=== PATIENT | male | born 1960 | race Caucasian/White ===

== ENCOUNTER 2018-04-09 06:25 | Emergency (ER) | payer OTHER, SELFPAY ==
[2018-04-09 07:02] LABS: Absolute Lymphocytes (CBC) 1.8 K/uL (0.7-4.9); Absolute Monocytes 0.6 K/uL (0.1-1.3); Absolute Neutrophil 3.6 K/uL (1.8-8.0); Basophils % 0.4 % (0-1.3); Eosinophils % 3.8 % (0-4.4); Hematocrit 53.3 % (39.6-49.0); Lymphocytes % 29.1 % (15.3-44.8); MCH 30.5 pg (27.0-35.0); MCV 90.8 fL (80-100); MPV 9.1 fL (7.6-11.3); Monocytes % 9.5 % (3.3-12.3); RBC Red Blood Cell Count 5.87 M/uL (4.33-5.43)
[2018-04-09 07:05] LABS: Protime INR 0.94
[2018-04-09 07:09] LABS: Potassium 4.1 mEq/L (3.6-5.0)
[2018-04-09 07:15] LABS: Albumin 4.1 g/dL (3.2-5.5); Bilirubin Direct 0.1 mg/dL (0-0.2); Bilirubin Total 0.8 mg/dL (0.3-1.2); Magnesium 2.1 mg/dL (1.8-2.5); Protein, Total 6.7 g/dL (6.0-8.3)
[2018-04-09 07:18] LABS: CKMB Creatine Kinase MB 1.1 ng/ml (0.3-4.0)
--- NOTE | 2018-04-09 08:38 | RAD REPORT ---
EXAM DESCRIPTION: CT - [id number] - 04/09/2018 7:04 am CLINICAL HISTORY: Trauma, head and neck injury. COMPARISON: None. TECHNIQUE: Axial 5 mm thick images of the head were obtained. Axial 2 mm thick images of the cervical spine were obtained with sagittal and coronal reconstruction images generated and reviewed. All CT scans are performed using dose optimization technique as appropriate and may include automated exposure control or mA/KV adjustment according to patient size. FINDINGS: CT HEAD WITHOUT CONTRAST: No acute hemorrhage, hydrocephalus or extra-axial collection is identified.Mild generalized brain atr ophy.No areas of brain edema or midline shift. The paranasal sinuses and mastoids are clear.The calvarium is intact. CT CERVICAL SPINE WITHOUT CONTRAST: No fracture or subluxation.Multilevel degenerative change throughout the cervical spine. 2 mm anterol isthesis of C4 on 5.No prevertebral soft tissues swelling is identified. IMPRESSION: No acute intracranial or cervical spine findings.
--- NOTE | 2018-04-09 09:47 | RAD REPORT ---
EXAM DESCRIPTION: VAS - Extremity Venous Uni Ltd - 04/09/2018 9:13 am CLINICAL HISTORY: Left arm swelling. COMPARISON: None. FINDINGS: Left upper extremity venous system was interrogated with Doppler technique. Normal flow, c ompressibility and augmentation was noted. There is no DVT present. IMPRESSION: No evidence of left upper extremity deep venous thrombosis.
--- NOTE | 2018-04-09 09:53 | ER ---
Nurse's Notes [facility] Name: Julio Olivo Age: 57 yrs Sex: Male : 1960 Arrival Date: 04/09/2018 Time: 06:26 Bed 6 Private MD: Diagnosis: Paresthesia of skin-Left Medial Forearm Presentation: 04/09 06:30 Presenting complaint: Patient states: that at 1999 last night he started to have fc numbness to the underside of his left forearm. Denies any pain to that pain. States that he has a slight headache but no chest pain or shortness of breath. Transition of care: patient was not received from another setting of care. Onset of symptoms was April 08, 2018 at 20:00. Risk Assessment: Do you want to hurt yourself or someone else? Patient reports no desire to harm self or others. Initial Sepsis Screen: Does the patient meet any 2 criteria? No. Patient's initial sepsis screen is negative. Does the patient have a suspected source of infection? No. Patient's initial sepsis screen is negative. Care prior to arrival: None. 06:30 Method Of Arrival: Ambulatory 06:30 Acuity: SOLOMON 3 Triage Assessment: 06:30 General: Appears comfortable, Behavior is calm, cooperative, appropriate for age. Pain: fc Complains of pain in head Pain currently is 3 out of 10 on a pain scale. Quality of pain is described as aching, Is continuous. EENT: No deficits noted. Neuro: Level of Consciousness is awake, alert, obeys commands, Oriented to person, place, time, situation, Sports Clerk are equal bilaterally Moves all extremities. Full function Gait is steady, Speech is normal, Facial symmetry appears normal, Reports numbness in palmar aspect of left forearm since 1999 last night. Cardiovascular: No deficits noted. Denies chest pain. Respiratory: No deficits noted. GI: No deficits noted. : No deficits noted. Derm: Skin is pink, warm \T\ dry. Musculoskeletal: Circulation, motion, and sensation intact. Capillary refill < 3 seconds, Range of motion: intact in all extremities, Reports numbness in palmar aspect of left forearm. Historical: - Allergies: 06:42 No Known Allergies; fc - Home Meds: 06:42 testosterone cypionate 200 mg/mL intramuscular oil 2 mL every 2 wks [Active]; fc Wellbutrin XL 150 mg Oral Tb24 .5 tab nightly [Active]; clonazepam 2 mg Oral tab 2 tabs nightly [Active]; - PMHx: 06:42 Diabetes - NIDDM; Hypertension; Depression; Anxiety; insomnia; fc - PSHx: 06:42 Hernia repair; left wrist surg; fc - Immunization history:: Last tetanus immunization: unknown. - Social history:: Smoking status: Patient/guardian denies using tobacco. - Ebola Screening: : Patient negative for fever greater than or equal to 101.5 degrees Fahrenheit, and additional compatible Ebola Virus Disease symptoms Patient denies exposure to infectious person Patient denies travel to an Ebola-affected area in the 21 days before illness onset. Screenin:42 Abuse screen: Denies threats or abuse. Nutritional screening: No deficits noted. fc Tuberculosis screening: No symptoms or risk factors identified. Fall Risk None identified. Assessment: 06:47 Reassessment: Patient appears in no apparent distress at this time. No changes from ak1 previously documented assessment. General: Appears in no apparent distress. Behavior is calm, cooperative. Pain: Denies pain. Neuro: Level of Consciousness is awake, alert, obeys commands, Oriented to person, place, time, situation, Sports Clerk are equal bilaterally Moves all extremities. Gait is steady, Speech is normal, Facial symmetry appears normal. Cardiovascular: No deficits noted. Respiratory: No deficits noted. GI: No signs and/or symptoms were reported involving the gastrointestinal system. : No signs and/or symptoms were reported regarding the genitourinary system. EENT: No signs and/or symptoms were reported regarding the EENT system. Derm: Reports numbness to underside of left forearm since 199904/08/18. Musculoskeletal: Reports numbness in palmar aspect of left forearm. 07:02 Reassessment: report given to Salud Ma RN and Jackson Means RN. ak1 07:15 Reassessment: Patient appears in no apparent distress at this time. Patient and/or sg family updated on plan of care and expected duration. Pain level reassessed. Patient is alert, oriented x 3, equal unlabored respirations, skin warm/dry/pink. awaiting results, awaiting new orders, awaiting re evaluation by PETRA GOMEZ. 09:10 Reassessment: Patient appears in no apparent distress at this time. Patient is alert, sg oriented x 3, equal unlabored respirations, skin warm/dry/pink. xray at bedside at this time. 10:06 Reassessment: Patient appears in no apparent distress at this time. No changes from tw2 previously documented assessment. Patient and/or family updated on plan of care and expected duration. Pain level reassessed. Patient is alert, oriented x 3, equal unlabored respirations, skin warm/dry/pink. Vital Signs: 06:30 BP 135 / 94; Pulse 63; Resp 18; Temp 97.2(O); Pulse Ox 98% on R/A; Weight 89.81 kg (R); fc Height 6 ft. 0 in. (182.88 cm) (R); Pain 3/10; 06:30 Body Mass Index 26.85 (89.81 kg, 182.88 cm) ED Course: 06:26 Patient arrived in ED. ds1 06:29 Gonzalez Godoy PA is PHCP. cp 06:29 Siva Shabazz MD is Attending Physician. cp 06:30 Arm band placed on Patient placed in an exam room, on a stretcher. fc 06:38 Triage completed. fc 06:42 Patient has correct armband on for positive identification. Bed in low position. Call light in reach. 06:42 No provider procedures requiring assistance completed. fc 06:47 Erin Lam, RN is Primary Nurse. ak1 06:47 Initial lab(s) drawn, by ks, sent to lab. EKG done. Inserted saline lock: 20 gauge in ak1 right forearm, using aseptic technique. Blood collected. 06:[address] via wheelchair. kw1 07:02 CT completed. Patient tolerated procedure well. Patient moved back from [place]. kw1 07:05 CT Head C Spine In Process Unspecified. EDMS 07:33 Amaury Key MD is Attending Physician. cp 09:11 US Extremity Venous Unilateral Ltd In Process Unspecified. EDMS 09:25 Primary Nurse role handed off by Erin Lam, RN sg 09:25 Jackson Shore, ANDREA is Primary Nurse. sg 10:06 IV discontinued, intact, bleeding controlled, No redness/swelling at site. Pressure tw2 dressing applied. Administered Medications: No medications were administered Outcome: 09:53 Discharge ordered by . cp 10:06 Discharged to home ambulatory, with significant other. tw2 10:06 Condition: stable 10:06 Discharge instructions given to patient, significant other, Instructed on discharge instructions, follow up and referral plans. medication usage, Demonstrated understanding of instructions, follow-up care, medications, Prescriptions given X 1. 10:07 Patient left the ED. tw2 Signatures: Dispatcher [employer] EDMS Jackson Shore, RN RN sg Morenita Pittman RN RN Andreina Lancaster ds1 Erin Lam RN RN ak1 Gonzalez Godoy PA PA cp Wise, Tara, RN RN tw2 Génesis Mars kw1
--- NOTE | 2018-04-09 09:53 | EDPHYS ---
Physician Documentation [facility] Name: Julio Olivo Age: 57 yrs Sex: Male : 1960 Arrival Date: 04/09/2018 Time: 06:26 Bed 6 Private MD: ED Physician Amaury Key HPI: 04/09 06:34 This 57 yrs old Male presents to ER via Unassigned with complaints of cp Numbness - In arm. 06:35 The patient's problem is reported as paresthesias, in left upper extremity. cp 06:35 Onset: The symptoms/episode began/occurred last night, at 20:00. Duration: The episode cp is continuous. Associated signs and symptoms: Pertinent positives: headache. 06:35 Severity of symptoms: in the emergency department the symptoms are unchanged despite cp home interventions. Patient's baseline: Neuro: alert and fully oriented, Motor: no deficits, Ambulation: walks without assistance, Speech: normal. 06:35 The patient has not experienced similar symptoms in the past. cp 06:35 Patient reports noticing swelling of medial aspect left forearm this morning that has cp improved. Historical: - Allergies: 06:42 No Known Allergies; fc - Home Meds: 06:42 testosterone cypionate 200 mg/mL intramuscular oil 2 mL every 2 wks [Active]; fc Wellbutrin XL 150 mg Oral Tb24 .5 tab nightly [Active]; clonazepam 2 mg Oral tab 2 tabs nightly [Active]; - PMHx: 06:42 Diabetes - NIDDM; Hypertension; Depression; Anxiety; insomnia; fc - PSHx: 06:42 Hernia repair; left wrist surg; fc - Immunization history:: Last tetanus immunization: unknown. - Social history:: Smoking status: Patient/guardian denies using tobacco. - Ebola Screening: : Patient negative for fever greater than or equal to 101.5 degrees Fahrenheit, and additional compatible Ebola Virus Disease symptoms Patient denies exposure to infectious person Patient denies travel to an Ebola-affected area in the 21 days before illness onset. ROS: 06:38 Constitutional: Negative for body aches, chills, fever, poor PO intake. cp 06:38 Eyes: Negative for injury, pain, redness, and discharge. cp 06:38 ENT: Negative for drainage from ear(s), ear pain, sore throat, difficulty swallowing, difficulty handling secretions. 06:38 Neck: Positive for tenderness, mild pain, Negative for injury or acute deformity, stiffness, swelling. 06:38 Cardiovascular: Negative for chest pain, edema, palpitations. 06:38 Respiratory: Negative for cough, shortness of breath, wheezing. 06:38 Abdomen/GI: Negative for abdominal pain, nausea, vomiting, and diarrhea, black/tarry stool, rectal bleeding. 06:38 Back: Negative for injury or acute deformity, pain at rest, pain with movement, radiated pain. 06:38 : Negative for urinary symptoms, flank pain. 06:38 MS/extremity: Positive for paresthesias, of the medial aspect left forearm, Negative for injury or acute deformity, decreased range of motion, pain, tenderness. 06:38 Skin: Negative for cellulitis, rash. 06:38 Neuro: Negative for altered mental status, dizziness, weakness. 06:38 All other systems are negative. Exam: 06:47 Constitutional: The patient appears in no acute distress, alert, awake, comfortable, cp non-diaphoretic, non-toxic, well developed, well nourished. 06:47 Head/Face: Normocephalic, atraumatic. Eyes: Pupils equal round and reactive to light, cp extra-ocular motions intact. Lids and lashes normal. Conjunctiva and sclera are non-icteric and not injected. Cornea within normal limits. Periorbital areas with no swelling, redness, or edema. ENT: Nares patent. No nasal discharge, no septal abnormalities noted. Tympanic membranes are normal and external auditory canals are clear. Oropharynx with no redness, swelling, or masses, exudates, or evidence of obstruction, uvula midline. Mucous membranes moist. 06:47 Neck: External neck: swelling, is not appreciated, tenderness, that is mild, of the left mid cervical area, right mid cervical area, left trapezius, lower cervical area and right trapezius, C-spine: vertebral tenderness, that is mild, appreciated at lower cervical, crepitus, is not appreciated, ROM/movement: is normal, is supple, no range of motions limitations, no meningismus, no nuchal rigidity. 06:47 Chest/axilla: Inspection: normal, Palpation: is normal, no crepitus, no tenderness. 06:47 Cardiovascular: Rate: normal, Rhythm: regular, Pulses: Pulses are 2+ in right radial artery and left radial artery. Heart sounds: murmur, not appreciated, Edema: is not appreciated, JVD: is not appreciated. 06:47 Respiratory: the patient does not display signs of respiratory distress, Respirations: normal, no use of accessory muscles, no retractions, no splinting, no tachypnea, labored breathing, is not present, Breath sounds: are clear throughout, no decreased breath sounds, no stridor, no wheezing. 06:47 Abdomen/GI: Inspection: abdomen appears normal, Palpation: abdomen is soft and non-tender, in all quadrants. 06:47 Back: pain, is absent, ROM is normal, vertebral tenderness, is not appreciated. 06:47 Musculoskeletal/extremity: Exam is negative for acute changes, bony tenderness, calf tenderness, decreased range of motion, deformity, injury, the medial aspect left forearm from elbow to wrist decreased sensation, no pain noted 06:47 Skin: cellulitis, is not appreciated, no rash present. 06:47 Neuro: Orientation: to person, place \T\ time. Mentation: lucid, able to follow commands, Cerebellar function: is grossly normal, Motor: moves all fours, strength is normal, Gait: is steady, at a normal pace, without difficulty. 06:50 ECG was reviewed by the Attending Physician. cp 08:42 Radiologist reports: no acute findings cp Vital Signs: 06:30 BP 135 / 94; Pulse 63; Resp 18; Temp 97.2(O); Pulse Ox 98% on R/A; Weight 89.81 kg (R); fc Height 6 ft. 0 in. (182.88 cm) (R); Pain 3/10; 06:30 Body Mass Index 26.85 (89.81 kg, 182.88 cm) fc MDM: 06:29 Patient medically screened. cp 07:00 Differential diagnosis: CVA, TIA, metabolic disorder, drug effects, peripheral cp neuropathy, cardiac arrythmia. 09:51 Data reviewed: vital signs, nurses notes, lab test result(s), EKG, radiologic studies, cp CT scan, ultrasound. 09:51 Counseling: I had a detailed discussion with the patient and/or guardian regarding: the cp historical points, exam findings, and any diagnostic results supporting the discharge/admit diagnosis, lab results, radiology results, the need for outpatient follow up, a family practitioner, to return to the emergency department if symptoms worsen or persist or if there are any questions or concerns that arise at home. Response to treatment: There is no appreciated change of the patient's symptoms at this time, and as a result, I will discharge patient. ED course: VSS. Labs and radiology studies reviewed. Will discharge to home for continued monitoring with RX given for medrol dose kai. Patient instructed to monitor blood glucose levels and f/u with PCP. 06 06:33 Order name: Basic Metabolic Panel cp 06/ 06:33 Order name: BNP; Complete Time: 07:33 cp 06/05 06:33 Order name: CBC with Diff; Complete Time: 07:10 cp 06/ 07:10 Interpretation: Normal except: RBC 5.87; HCT 53.3. cp 06/05 06:33 Order name: Ckmb cp 06/ 06:33 Order name: CPK cp 06/ 06:33 Order name: LFT's; Complete Time: 07:33 cp 06/05 06:33 Order name: Magnesium; Complete Time: 07:33 cp 06/05 06:33 Order name: PT-INR; Complete Time: 07:10 cp 06/05 06:33 Order name: Ptt, Activated; Complete Time: 07:10 cp 06/05 06:33 Order name: Troponin (emerg Dept Use Only); Complete Time: 07:33 cp 06/05 07:34 Interpretation: TROPED < 0.03; Reviewed. cp 06/05 06:34 Order name: Basic Metabolic Panel; Complete Time: 07:33 EDMS 06/05 07:10 Interpretation: Normal except: GLUC 128. cp 06/05 06:34 Order name: CKMB Creatine Kinase MB; Complete Time: 07:33 EDMS /05 06:34 Order name: Creatine Phosphokinase; Complete Time: 07:33 EDMS 06/05 06:33 Order name: EKG; Complete Time: 06:34 cp 06/05 06:33 Order name: Cardiac monitoring; Complete Time: 06:49 cp 06/05 06:33 Order name: EKG - Nurse/Tech; Complete Time: 06:49 cp 06/05 06:33 Order name: IV Saline Lock; Complete Time: 06:49 cp 06/05 06:33 Order name: Labs collected and sent; Complete Time: 06:49 cp 06/05 06:33 Order name: O2 Per Protocol; Complete Time: 06:49 cp 04/09 06:33 Order name: O2 Sat Monitoring; Complete Time: 06:49 cp 04/09 06:41 Order name: CT Head C Spine; Complete Time: 08:40 cp 04/09 08:40 Interpretation: Reviewed report. cp 04/09 08:48 Order name: US Extremity Venous Unilateral Ltd; Complete Time: 09:50 cp 04/09 09:50 Interpretation: Report reviewed. cp EC:50 Rate is 62 beats/min. Rhythm is regular. [place] interval is normal. QRS interval is normal. cp QT interval is normal. No ST changes noted. Interpreted by me. Reviewed by me. Administered Medications: No medications were administered Disposition: 13:36 Co-signature as Attending Physician, Amaury Key MD. rn 04/10 07:17 Co-signature as Attending Physician, Amaury Key MD. rn Disposition: 04/09/18 09:53 Discharged to Home. Impression: Paresthesia of skin - Left Medial Forearm. - Condition is Stable. - Discharge Instructions: Paresthesia. - Prescriptions for Medrol (Kai) 4 mg Oral Tablets, Dose Pack - take 1 tablet by ORAL route as directed - follow package instructions; 1 packet. - Work release form, Medication Reconciliation Form, Thank You Letter, Antibiotic Education, Prescription Opioid Use form. - Follow up: Private Physician; When: 2 - 3 days; Reason: Recheck today's complaints. - Problem is new. - Symptoms are unchanged. Signatures: Dispatcher [employer] [facility] Morenita Pittman RN RN fc Nieto, Roman, MD MD rn Page, Corey, PA PA cp Wise, Tara, RN RN tw2 Corrections: (The following items were deleted from the chart) 04/09 06:49 06:34 Head Brain Wo Cont+CT.RAD.BRZ ordered. EDVA EDMS 10:07 09:53 04/09/2018 09:53 Discharged to Home. Impression: Paresthesia of skin - Left tw2 Medial Forearm. Condition is Stable. Forms are Medication Reconciliation Form, Thank You Letter, Antibiotic Education, Prescription Opioid Use. Follow up: Private Physician; When: 2 - 3 days; Reason: Recheck today's complaints. Problem is new. Symptoms are unchanged. cp
--- NOTE | 2018-04-09 13:42 | EKG ---
Test Date: 2018-04-09 Test Time: 06:43:06 Care Coordination Manager: GORDON MEASUREMENT RESULTS: Intervals: Rate: 62 [place]: 164 QRSD: 86 QT: 420 QTc: 426 [place]: P: 48 [place]: 164 QRS: 58 T: 54 INTERPRETIVE STATEMENTS: Normal sinus rhythm Normal ECG No previous ECG available for comparison Electronically Signed On 04-09-18 13:40:45 CDT by Chuck Hicks
== END 2018-04-09 10:07 | disposition home or self-care (01) ==
LOC: ER 06:25
DX: R20.2 Paresthesia of skin (principal); I10 Essential (primary) hypertension; E11.9 Type 2 diabetes mellitus without complications; F41.9 Anxiety disorder, unspecified; F32.9 Major depressive disorder, single episode, unspecified
CPT/HCPCS: 36415; 70450; 72125; 80048; 80076; 82550; 82553; 83735; 83880; 84484; 85025; 85610; 85730; 93005; 93971; 99284